=== PATIENT | female | born 1975 ===

== ENCOUNTER 2016-12-09 11:41 | Emergency (ER) | payer OTHER ==
[2016-12-09 11:42] VITALS: BMI 35.2
[2016-12-09 12:23] VITALS: TEMP 98; O2SAT 100
--- NOTE | 2016-12-09 12:27 | ED PDOC ---
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 Patient has slight dysuria. She denies fever or chills. Patient denies concern for STD. She denies any abdominal pain, nausea, vomiting or diarrhea. No abnormal vaginal bleeding. Past Medical History Reviewed: Historical Data, Nursing Documentation, Vital Signs Vital Signs: Last Vital Signs Temp 98 F 12/09/16 12:21 Pulse 82 12/09/16 12:21 Resp 16 12/09/16 12:21 BP 147/73 12/09/16 12:21 Pulse Ox 100 12/09/16 12:21 - Medical History PMH: No Chronic Diseases - Surgical History Surgical History: Cholecystectomy - Family History Family History: States: No Known Family Hx - Living Arrangements Living Arrangements: With Family - Social History Current smoker - smoking cessation education provided: No Alcohol: None Drugs: Denies - Home Medications Home Medications: Ambulatory Orders Medication Instructions Recorded Docusate [Colace] 100 mg PO Q8 PRN 12/12/15 oxyCODONE/Acetaminophen [Percocet 1 tab PO Q6 PRN 12/12/15 5/325 mg Tab] Ibuprofen [Motrin] 600 mg PO Q6 PRN #15 tab 12/09/16 Metronidazole [Metrogel] 1 appful TP DAILY #6 gm 12/09/16 - Allergies Allergies/Adverse Reactions: Allergies Allergy/AdvReac Type Severity Reaction Status Date / Time surgical tape Allergy RASH Uncoded 12/12/15 06:44 Review of Systems ROS Statement: Except As Marked, All Systems Reviewed And Found Negative Constitutional: Negative for: Fever Gastrointestinal: Negative for: Nausea, Vomiting, Abdominal Pain Genitourinary Female: Positive for: Dysuria, Vaginal Discharge, Other (vaginal pain) Physical Exam - Reviewed Nursing Documentation Reviewed: Yes Vital Signs Reviewed: Yes - Physical Exam Appears: Positive for: Well, Non-toxic, No Acute Distress Skin: Negative for: Rash Eye Exam: Positive for: Normal appearance Cardiovascular/Chest: Positive for: Regular Rate, Rhythm Respiratory: Positive for: Normal Breath Sounds Gastrointestinal/Abdominal: Positive for: Soft. Negative for: Tenderness, Distended, Guarding, Rebound Pelvic Exam: Positive for: External Exam Normal (No external erythema, edema, rash or lesions), Bimanual Exam Normal, Discharge (Moderate white discharge noted from closed cervical os, no vaginal bleeding). Negative for: Cervicitis, Tender W/Cervical Motion, Tender Adnexa, Tender Uterus Extremity: Positive for: Normal ROM Neurologic/Psych: Positive for: Alert, Oriented - Laboratory Results Urine POC: Negative Urine dip results: Negative for: Leukocyte Esterase, Blood, Nitrate, Ketones, Glucose, Bilirubin, Protein - ECG O2 Sat by Pulse Oximetry: 100 Pulse Ox Interpretation: Normal Medical Decision Making Medical Decision Makin-year-old female with vaginal pain and discharge. Plan: test Urinalysis Genital culture GC and Chlamydia cultures Urine culture Urinalysis is negative, test is negative. Patient given prescription for Motrin and MetroGel. She was referred to women's clinic for follow-up. Disposition - Clinical Impression Clinical Impression: Bacterial vaginosis - Patient ED Disposition Is Patient to be Admitted: No Counseled Patient/Family Regarding: Studies Performed, Diagnosis, Need For Followup, Rx Given - Disposition Referrals: [facility] [Outside] Disposition: Routine/Home Disposition Time: 13:52 Condition: STABLE Additional Instructions: Take rx meds as directed. Follow up with women's clinic in 2-3 days. Prescriptions: Ibuprofen [Motrin] 600 mg PO Q6 PRN #15 tab PRN Reason: Pain, Moderate (4-7) Metronidazole [Metrogel] 1 appful TP DAILY #6 gm Instructions: Bacterial Vaginosis (ED), Vaginitis (ED) Forms: [employer] (Yoruba) Print Language: MONGOLIAN
[2016-12-09 13:16] LABS: URINE BILIRUBIN NEGATIVE (NEGATIVE); URINE BLOOD NEGATIVE (NEGATIVE); URINE COLOR STRAW (YELLOW); URINE GLUCOSE (UA) NEG (Normal); URINE KETONE NEGATIVE (NEGATIVE); URINE LEUKOCYTE ESTERASE NEG Leu/uL (Negative); URINE PROTEIN NEGATIVE (NEGATIVE); URINE UROBILINOGEN 0.2-1.0 mg/dL (0.2-1.0)
[2016-12-09 14:13] VITALS: BP 136/74; PULSE 64; RESP 18
== END 2016-12-09 14:14 | disposition home or self-care (01) ==
LOC: H.ER 11:41
DX: N76.0 Acute vaginitis (principal)

== ENCOUNTER 2016-12-10 20:37 | Emergency (ER) | payer OTHER ==
[2016-12-10 20:37] VITALS: BMI 35.2
[2016-12-10 20:47] VITALS: BP 157/91; RESP 16; TEMP 99.3; O2SAT 100
[2016-12-10 21:39] LABS: BASO # 0.1 K/uL (0.0-0.2); BASO % 0.9 % (0.0-2.0); EOS # 0.2 K/uL (0.0-0.7); EOS % 2.3 % (0.0-4.0); HEMATOCRIT 38.8 % (34.0-47.0); LYMPH # 2.7 K/uL (1.0-4.3); LYMPH % 32.4 % (20.0-40.0); MEAN CELL VOLUME 89.7 fl (81.0-99.0); MEAN CORPUSCULAR HEMOGLOBIN 29.3 pg (27.0-31.0); MEAN CORPUSCULAR HGB CONC 32.7 g/dL (33.0-37.0); MEAN PLATELET VOLUME 8.3 fl (7.2-11.7); MONO # 0.4 K/uL (0.0-0.8); MONO % 4.9 % (0.0-10.0); NEUT # 4.9 K/uL (1.8-7.0); NEUT % 59.5 % (50.0-75.0); NRBC % 0.1 % (0.0-0.0); RED CELL DISTRIBUTION WIDTH 13.8 % (11.5-14.5); WHITE BLOOD COUNT 8.3 K/uL (4.8-10.8)
[2016-12-10 22:03] LABS: BLOOD UREA NITROGEN 9 mg/dl (7-17); CALCIUM 8.9 mg/dL (8.4-10.2); CARBON DIOXIDE 24 mmol/L (22-30); CHLORIDE 103 mmol/L (98-107); GFR AFRICAN-AMERICAN > 60; GLUCOSE,RANDOM 122 mg/dL (65-105); SODIUM 139 mmol/l (132-148)
--- NOTE | 2016-12-10 22:34 | ED PDOC ---
HPI: Chest Pain Time Seen by Provider: 12/10/16 21:00 Chief Complaint (Nursing): Chest Pain History Per: Patient History/Exam Limitations: no limitations Onset/Duration Of Symptoms: Days Current Symptoms Are (Timing): Still Present Exacerbating Factors: Turning, Movement Additional History Per: Patient Additional Complaint(s): 41 y/o female complaining of chest pain x2 days after moving a pool sized mattress. Pain is nonradiating, worse with movement and turning. She denies any worsening pain with deep breathing, shortness of breath, nausea, vomiting, diaphoresis, or other complaint. Past Medical History Vital Signs: Last Vital Signs Temp 99.3 F 12/10/16 20:45 Pulse 83 12/10/16 20:45 Resp 16 12/10/16 20:45 BP 157/91 H 12/10/16 20:45 Pulse Ox 100 12/10/16 23:15 - Medical History PMH: HTN - Surgical History Surgical History: Cholecystectomy - Family History Family History: States: Unknown Family Hx - Social History Current smoker - smoking cessation education provided: No Ex-Smoker (has not smoked in the last 12 months): No Alcohol: None Drugs: Denies - Immunization History Hx Tetanus Toxoid Vaccination: No Hx Influenza Vaccination: No Hx Pneumococcal Vaccination: No - Home Medications Home Medications: Ambulatory Orders Medication Instructions Recorded Docusate [Colace] 100 mg PO Q8 PRN 12/12/15 oxyCODONE/Acetaminophen [Percocet 1 tab PO Q6 PRN 12/12/15 5/325 mg Tab] Ibuprofen [Motrin] 600 mg PO Q6 PRN #15 tab 12/09/16 Metronidazole [Metrogel] 1 appful TP DAILY #6 gm 12/09/16 - Allergies Allergies/Adverse Reactions: Allergies Allergy/AdvReac Type Severity Reaction Status Date / Time surgical tape Allergy RASH Uncoded 12/12/15 06:44 Review of Systems ROS Statement: Except As Marked, All Systems Reviewed And Found Negative Cardiovascular: Positive for: Chest Pain Physical Exam - Reviewed Nursing Documentation Reviewed: Yes Vital Signs Reviewed: Yes - Physical Exam Appears: Positive for: Well, Non-toxic, No Acute Distress Head Exam: Positive for: ATRAUMATIC, NORMAL INSPECTION, NORMOCEPHALIC Skin: Positive for: Normal Color, Warm, DRY Eye Exam: Positive for: EOMI, Normal appearance, PERRL ENT: Positive for: Normal ENT Inspection Neck: Positive for: Normal, Painless ROM Cardiovascular/Chest: Positive for: Regular Rate, Rhythm Respiratory: Positive for: CNT, Normal Breath Sounds Gastrointestinal/Abdominal: Positive for: Normal Exam, Bowel Sounds, Soft Back: Positive for: Normal Inspection Extremity: Positive for: Normal ROM Neurologic/Psych: Positive for: Alert, Oriented - Laboratory Results Result Diagrams: 12/10/16 21:25 12/10/16 21:25 - ECG ECG: Positive for: Interpreted By Me, Viewed By Me ECG Rhythm: Positive for: Normal QRS, Normal ST Segment, Sinus Rhythm Interpretation Of Abn EK:44 Rate: 85 O2 Sat by Pulse Oximetry: 100 (RA) Pulse Ox Interpretation: Normal - Radiology X-Ray: Viewed By Me X-Ray Interpretation: No Acute Disease Medical Decision Making Medical Decision Making: Impression: 41 y/o female with chest pain in the setting of exertion. Plan: - EKG - CXR Time: 2300 Labs reviewed and show no clinically significant abnormalities. CXR reviewed and shows no acute disease. Pt stable upon discharge home; advised to continue taking Ibuprofen as needed for pain. Advised to follow up in the clinic in 1-2 days. Diagnosis: Costochondritis, Chest wall pain Attestation Scribe Attestation: Documented by Brenna Waggoner acting as a scribe for Hugh Romo MD. Scribe Attestation: All medical record entries made by the Scribe were at my direction and personally dictated by me. I have reviewed the chart and agree that the record accurately reflects my personal performance of the history, physical exam, medical decision making, and the department course for this patient. I have also personally directed, reviewed, and agree with the discharge instructions and disposition. Disposition - Clinical Impression Clinical Impression: Chest wall pain - Patient ED Disposition Is Patient to be Admitted: No - Disposition Disposition: Routine/Home Disposition Time: 23:00 Condition: STABLE Instructions: Costochondritis (ED), Chest Wall Pain (ED) Forms: [facility] (Togolese) Print Language: ANDORRAN
[2016-12-10 23:17] VITALS: PULSE 85
--- NOTE | 2016-12-11 09:39 | RAD ---
HISTORY: chest pain COMPARISON: No prior. TECHNIQUE: Chest PA and lateral FINDINGS: LUNGS: No active pulmonary disease. PLEURA: No significant pleural effusion identified. No pneumothorax apparent. CARDIOVASCULAR: Normal. OSSEOUS STRUCTURES: No significant abnormalities. VISUALIZED UPPER ABDOMEN: Normal. OTHER FINDINGS: None. IMPRESSION: No active disease.
== END 2016-12-10 23:00 | disposition home or self-care (01) ==
LOC: H.ER 20:37
DX: I10 Essential (primary) hypertension (principal); M94.0 Chondrocostal junction syndrome [Tietze]